=== PATIENT | male | born 1995 | race Caucasian/White ===

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

== ENCOUNTER 2017-11-09 13:23 | Emergency (ER) | payer BC ==
--- NOTE | 2017-11-09 14:32 | EDPHY ---
General - History Smoking Status: Never smoked Time Seen by Provider: 11/09/17 14:27 Narrative: CHIEF COMPLAINT: Something stuck in my throat HISTORY OF PRESENT ILLNESS: Patient presents with complaints of feeling that something stuck in his throat. He points to the area just above the sternal notch. He awoke Friday morning , 8 days ago with this. He says he feels "like there's a marble in there." It is Not painful. He has no sore throat. No headache. No difficulty breathing or swallowing. He has been tolerating liquids and solids without difficulty. He has no drooling. No difficulty talking. No intake of fish or bony foods preceding this. He has not yet been evaluated for this. No other associated complaints or modifying factors. REVIEW OF SYSTEMS: 10 systems were reviewed and negative with the exception of the elements mentioned in the history of present illness. PCP: Dr. Allan Lee SPECIALISTS: None PAST MEDICAL HISTORY: None past PAST SURGICAL HISTORY: No surgical history SOCIAL HISTORY: Nonsmoker. [employer] student. FAMILY HISTORY: Noncontributory EXAMINATION: General Appearance: Alert, no distress. Speaking in complete sentences without difficulty. Head: normocephalic, atraumatic Eyes: Pupils equal and round, no conjunctival pallor or injection ENT, Mouth: Mucous membranes moist. Uvula is midline. The posterior pharynx is well visualized to the epiglottis, and there is no edema or erythema. No drooling. No trismus. Neck: Normal inspection, supple, non-tender Respiratory: Lungs are clear to auscultation Cardiovascular: Regular rate and rhythm Neurological: A&O, nonfocal, normal gait Skin: Warm and dry, no rash Extremities: Nontender, no pedal edema Psychiatric: Mood and affect normal DIFFERENTIAL DIAGNOSES: Including but not limited to esophageal foreign body, esophagitis, strep pharyngitis, viral pharyngitis, globus pallidus MDM: 2:30 p.m. Foreign body sensation x1 week located in the esophagus, just above the sternal notch. He has been eating and drinking well without difficulty over the past week. He has no complaints elsewhere. He is pharynx is well visualized without any evidence of strep pharyngitis or peritonsillar abscess. His lungs are clear in all ng. I have ordered rapid strep test and x-ray of the neck soft tissue for possible foreign body 3:10 p.m. Rapid strep test is negative. X-ray has been read as negative by radiologist. Patient re-evaluated. He has been drinking water without difficulty. I discussed case with Dr. Flower and he has evaluated the patient. He will perform nasopharyngeal endoscopy. Please see his note for details. 4:00 p.m. Patient and evaluated by Dr. Flower. He has performed direct examination without any abnormalities noted. Please see his note for details. I have also re-evaluated the patient at this time. He is tolerating intake of water. We discussed discharge home with [id number] remedies. We discussed contacting ENT physician for definitive care. We discussed ED precautions. I have answered all his questions. He is comfortable this plan and discharged home stable condition. SUPERVISION: Patient was evaluated and examined in conjunction with my secondary supervising physician as documented. We have both examined the patient. CONSULTATION: None (Emigdio Clemente) Medical Decision Making: The patient's strep PCR came back positive. We called him a prescription of azithromycin. (Matthew Flower) - Diagnostics Imaging Results: Imaging Impressions Soft Tissue Neck X-Ray 11/09/17 14:33 Impression: Normal. No evidence retained foreign body. Procedures: Nasopharyngeal scope: The patient's nares were instilled with Afrin. I then tripped 10 cc of 1% lidocaine into the patient's left knee or over the base of 3 -4 minutes. This achieved good anesthesia and a nasopharyngeal scope was passed easily through the nares and the vocal cords and vallecula and epiglottis were easily visualized. No sign of erythema swelling or exudate. No visible foreign bodies. Normal movement with coughing and talking. (Matthew Flower) - Objective Vital Signs: Initial Vital Signs Temperature (C) 36.7 C 11/09/17 13:26 Heart Rate 79 11/09/17 13:26 Respiratory Rate 18 11/09/17 13:26 Blood Pressure 127/96 H 11/09/17 13:26 O2 Sat (%) 97 11/09/17 13:26 O2 Delivery Mode Room Air Allergies/Adverse Reactions: No Known Allergies Allergy (Verified 11/09/17 13:26) Home Medications: Medication Instructions Recorded NK [No Known Home Meds] 11/09/17 Laboratory Results: 11/09/17 11/09/17 Unknown 14:35 Group A Strep Screen NEGATIVE (NEGATIVE) Group A Strep DNA POSITIVE H (NEGATIVE) Medications Given: Discontinued Medications Ibuprofen (Motrin) 600 mg PO EDNOW ONE Stop: 11/09/17 16:09 Last Admin: 11/09/17 16:10 Dose: 600 mg Oxymetazoline HCl (Afrin Nasal [place]) 2 sprays EACHNARE EDNOW ONE Stop: 11/09/17 15:31 Last Admin: 11/09/17 15:33 Dose: 2 sprays Departure - Departure Disposition: Home, Routine, Self-Care Clinical Impression: Sensation of foreign body in esophagus Condition: Good Instructions: Esophageal Spasm (ED), Esophagitis (ED) Additional Instructions: 1. Recommend [id number] Mylanta as directed on the bottle as needed 2. Ibuprofen 600 mg every 8 hr as needed 3. Contact ENT physician on-call that has been provided. 4. Contact primary care physician for outpatient care this week 5. ED precautions as discussed Referrals: Allan Lee [Primary Care Provider] - As per Instructions Allan Davison MD [Medical Doctor] - As per Instructions
[2017-11-09] MEDS ORDERED: OXYMETAZOLINE 30 ML NASAL SPRAY EACHNARE ONE (15:30)
[2017-11-09] MEDS ORDERED: IBUPROFEN 600 MG TAB PO ONE (16:08)
[2017-11-09 16:12] VITALS: BP 138/87
[2017-11-09 18:49] LABS: GROUP A STREP DNA (THROAT) POSITIVE (NEGATIVE)
== END 2017-11-09 16:12 | disposition home or self-care (01) ==
PROC: 0CJY8ZZ Inspection of Mouth and Throat, Via Natural or Artificial Opening Endoscopic (ICD-10-PCS; principal; 2017-11-09)
DX: R09.89 Other specified symptoms and signs involving the circulatory and respiratory systems (principal)